=== PATIENT | female | born 1960 | race Caucasian/White ===

== ENCOUNTER 2024-08-27 05:59 | Day surgery (SDC) | payer OTHER ==
[2024-08-23 12:30] LABS: Absolute Eosinophils 0.2 K/uL (0-0.5); Absolute Lymphocytes (CBC) 3.3 K/uL (0.7-4.9); Absolute Monocytes 0.5 K/uL (0.1-1.3); Absolute Neutrophil 3.9 K/uL (1.8-8.0); Basophils % 0.3 % (0-1.3); Hematocrit 39.2 % (36.0-45.0); Hemoglobin 13.6 g/dL (12.0-15.0); Lymphocytes % 42.4 % (15.3-44.8); MCHC 34.7 g/dL (32.0-36.0); MCV 83.7 fL (80-100); MPV 7.7 fL (7.6-11.3); Monocytes % 6.4 % (3.3-12.3); Neutrophils % 48.9 % (41.7-73.7); Platelets 264 thou/uL (152-406); RBC Red Blood Cell Count 4.69 M/uL (3.86-4.86); Red Cell Distribution Width 13.5 % (12.1-15.2)
[2024-08-23 12:44] LABS: PT Prothrombin Time 10.8 SECONDS (10-13.0); PTT, Activated Partial Thromb 31.4 SECONDS (27.2-37.4); Protime INR 0.94
[2024-08-23 12:45] LABS: Albumin 3.8 g/dL (3.4-5.0); Albumin/Globulin Ratio 1.1 (1.1-1.8); Anion Gap 11.2 mEq/L (5.0-15.0); Bilirubin Total 0.6 mg/dL (0.2-1.0); Globulin 3.6 g/dL (2.3-3.5); Potassium 4.2 mEq/L (3.5-5.1); Protein, Total 7.4 g/dL (6.4-8.2)
--- NOTE | 2024-08-24 14:18 | EKG ---
Test Date: 2024-08-23 Test Time: 11:55:15 Loading Unit Operator: GASTON MEASUREMENT RESULTS: Intervals: Rate: 61 FL: 152 QRSD: 86 QT: 396 QTc: 398 Flom: P: 68 FL: 152 QRS: 53 T: 43 INTERPRETIVE STATEMENTS: Normal sinus rhythm Normal ECG No previous ECG available for comparison Electronically Signed On 08-24-24 14:13:39 CDT by Gustavo Chopra
[2024-08-27] MEDS ORDERED: CEFAZOLIN SODIUM 2 GM/VIAL ONE (06:17)
[2024-08-27] MEDS: Ringers Lactate 1,000 ML IV ONE (06:30)
[2024-08-27] MEDS ORDERED: HYDROMORPHONE HCL 1 MG/ML INJ ONE (06:45)
[2024-08-27] MEDS ORDERED: SUGAMMADEX SODIUM 200 MG/2 ML VIAL IV ONE (06:45)
[2024-08-27] MEDS ORDERED: SUCCINYLCHOLINE 20 MG/ML (10 ML) IV ONE (06:45)
[2024-08-27] MEDS ORDERED: FENTANYL CITR 100 MCG/2 ML ONE (06:55)
[2024-08-27] MEDS ORDERED: propofoL 200 MG/20 ML VIAL IV ONE (06:55)
[2024-08-27] MEDS ORDERED: ONDANSETRON 4 MG/2 ML VIAL ONE (06:55)
[2024-08-27] MEDS ORDERED: MIDAZOLAM HCL 2 MG/2 ML INJ ONE (06:55)
[2024-08-27] MEDS ORDERED: LIDOCAINE 2% MPF 5 ML VIAL ONE (06:55)
[2024-08-27] MEDS ORDERED: dexAMETHasone 10 MG/ML VIAL ONE (07:31)
[2024-08-27] MEDS ORDERED: EPHEDRINE SULF 50 MG/ML VIAL ONE (07:32)
[2024-08-27] MEDS: THROMBIN 5000 UNITS/VIAL TOP ONE (07:52)
[2024-08-27] MEDS ORDERED: ROCURONIUM 50 MG/5 ML VIAL IV ONE (07:59)
[2024-08-27] MEDS: VANCOMYCIN 1 GM/VIAL ONE (08:04)
[2024-08-27] MEDS: DEPO-MEDROL 40 MG/ML IM ONE (08:20)
[2024-08-27] MEDS ORDERED: GLYCOPYRROLATE 0.2 MG/ML SYR ONE (08:41)
[2024-08-27] MEDS ORDERED: NEOSTIGMINE 1 MG/ML -10 ML VIAL ONE (08:41)
[2024-08-27] MEDS ORDERED: Mastisol Adhesive Liq ONE (08:51)
[2024-08-27 10:56] VITALS: BP 105/50; TEMP 97.2
[2024-08-27 10:59] VITALS: O2SAT 98
--- NOTE | 2024-08-27 12:03 | RAD REPORT ---
EXAM: Fluoroscopy use, Fluoroscopy <1 Hour HISTORY: L5-S1 DISKECTOMY COMPARISON: None FINDINGS: Multiple images were sent to PACS, during a fluoroscopically guided procedure. No radiologi st was involved in protocoling or performance of the study, and no radiologist was present for the duration of the procedure. No interpretation of the saved images will be provided. Total fluoroscopy time: 0.1 minutes. IMPRESSION: Documentation of fluoroscopy use as above.
== END 2024-08-27 10:45 | disposition home or self-care (01) ==
LOC: OR 05:59
PROVIDERS: ATTEND Orthopaedic Surgery
PROC: 0SB40ZZ Excision of Lumbosacral Disc, Open Approach (ICD-10-PCS; principal; 2024-08-27 07:00)
DX: M51.26 Other intervertebral disc displacement, lumbar region (principal)
CPT/HCPCS: 93005; 85025; 36415; 85610; 85730; 83036; 80053; 63030 ×2; J2704; J2710; J1010; J2003; J2250; J3010; J3370; J1100; J1171; J2405; J7120; 76000